=== PATIENT | female | born 1935 | race Caucasian/White ===

== ENCOUNTER 2020-02-23 11:26 | Outpatient (CLI) | payer MEDICARE, BC, SELFPAY ==
--- NOTE | ~2020-02-23 | XR_ITS ---
EXAMINATION: XR ribs LT 2V EXAM DATE: 02/23/2020 11:46 INDICATION: Rib pain on left side lower lateral rib. Symptoms one week. TECHNIQUE: Frontal projection of the upper left ribs, frontal projection of the lower left ribs, obli que projection of the left ribs for interpretation. Correlation is made to chest x-ray 09/21/2014. FINDINGS: There are no displaced acute left rib fractures identified. There is no soft tissue abnor mality seen. There are no osteoblastic or osteolytic lesions identified. Left lung is clear. IMPRESSION: Unremarkable left rib exam. Reviewed, dictated and finalized at location A. HT DISPATCHER IMPRESSION: Unremarkable left rib exam.
== END 2020-02-23 11:27 | disposition home or self-care (01) ==
PROVIDERS: PCP Family Medicine; Visit Provider Family Medicine
DX: R07.81 Pleurodynia (principal)
CPT/HCPCS: 71100

== ENCOUNTER 2020-04-23 09:21 | Outpatient (CLI) | payer MEDICARE, BC, SELFPAY ==
--- NOTE | 2020-04-23 09:24 | ECG_ITS ---
Measurements Intervals [place] Rate: 62 P: 61 WI: 157 QRS: 14 QRSD: 102 T: 48 QT: 403 QTc: 411 Interpretive Statements SINUS RHYTHM ATRIAL PREMATURE COMPLEX DELAYED PRECORDIAL R/S TRANSITION BASELINE ARTIFACT- I, III, AVR, AVL, AVF, V1-V6 BORDERLINE ECG Electronically Signed On 04-23-2020 12:03:50 PROGRESS CLERK by Scott Baumann D.O.
== END 2020-04-23 09:22 | disposition home or self-care (01) ==
LOC: ANHSURGERY 09:23
PROVIDERS: PCP Family Medicine; Visit Provider Plastic Surgery
DX: Z01.818 Encounter for other preprocedural examination (principal); I10 Essential (primary) hypertension
CPT/HCPCS: 93005

== ENCOUNTER 2020-04-26 00:49 | Outpatient (CLI) | payer MEDICARE, BC, SELFPAY ==
[2020-04-26 18:47] LABS: SARS-CoV-2 RNA PCR Negative
== END 2020-04-26 00:50 | disposition home or self-care (01) ==
LOC: ANHCOVIDDT 00:49
PROVIDERS: PCP Family Medicine; Visit Provider Plastic Surgery
DX: Z01.812 Encounter for preprocedural laboratory examination (principal); Z20.822 Contact with and (suspected) exposure to COVID-19
CPT/HCPCS: C9803; U0003; U0005

== ENCOUNTER 2020-04-30 02:20 | Day surgery (SDC) | payer MEDICARE, BC, SELFPAY ==
[2020-04-22 14:42] VITALS: BMI 23.4
[2020-04-30] VITALS (7 sets, daily range): BP systolic 155–174; BP diastolic 39–71; PULSE 65–80; RESP 14–16; TEMP 36.1; O2SAT 95–100
--- NOTE | 2020-04-30 07:27 | WPDHPUPDATE1 ---
History and Physical Update Update Date/Time: 04/30/20 07:27 History and Physical has been reviewed, including an updated exam of the patient. There are NO changes in the patient's condition. Risks, benefits, and alternatives have been discussed and questions answered. Patient agrees to proceed with procedure.
[2020-04-30] MEDS: LACTATED RINGERS 1,000 ML 30 ML IV CONT (09:25)
--- NOTE | 2020-04-30 09:53 | WPDANESEPPF ---
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 Section Possible Full Thickness Skin Graft Or Local Tissue Transfer, Excision Neoplasm Unspecified Behavior Left Upper Nasal Sidewall With Frozen Section With Possible Local Tissue Transfer - Caden Gagnon MD Date/Time: 04/30/20 09:53 Surgeon: Caden Gagnon MD Pre Op Diagnosis: Sq cell ca left nasal lobule, Patient Data Age: 84 Gender: F Height: 5 ft 5 in Weight: 62.8 kg Last Vital Signs Temp 96.9 F L 04/30/20 08:44 Pulse 65 04/30/20 08:44 Resp 14 04/30/20 08:44 BP 157/70 H 04/30/20 08:44 Pulse Ox 100 04/30/20 08:44 Allergies Allergy/AdvReac Type Severity Reaction Status Date / Time No Known Allergies Allergy Verified 04/30/20 09:02 Home Medications Medication Instructions Recorded Confirmed Type metoprolol succinate 25 mg PO BID 02/07/19 04/30/20 History zolpidem 5 mg PO HS 02/07/19 04/30/20 History tramadol 50 mg PO Q6H PRN #10 tablet MDD 6 02/15/19 04/30/20 Rx aspirin [Aspir-81] 81 mg PO DAILY 04/22/20 04/30/20 History carbidopa-levodopa 0.5 tablet PO TID 04/22/20 04/30/20 History cholecalciferol (vitamin D3) 50 mcg PO DAILY 04/30/20 04/30/20 History [Vitamin D3] magnesium PO DAILY 04/30/20 History vitamin B complex 1 cap PO DAILY 04/30/20 04/30/20 History Patient hx anesthesia problems: none Family hx anesthesia problems: none PMFSH Past Medical History Medical History (Updated 04/30/20 @ 09:53 by Adria Lainez MD) Arthritis History of cancer of left breast Hypercholesteremia Hypertension Parkinson disease Social History Social History Smoking status: Never smoker Alcohol intake: current Drinks per week: 1 Alcohol use details: SHOT GLASS OF RED WINE EVERY DAY Substance use: never Living arrangements: with family Additional living arrangements comments: TAKES CARE OF AT HOME Spiritual care concerns: No Anes - Eval Final PreProcedure Day of Procedure 04/30/20 09:53 Patient weight: normal Heart: regular rate and rhythm Lungs: clear to auscultation Airway: Mallampati scale class II Neurological: alert and oriented Last oral intake: >/= 8 hours ASA classification: III Emergent: no Anesthetic plan: proceed Anesthesia type and monitoring: general GIVS (may use LMA) and standard monitoring Informed Consent: The patient's anesthetic plan and its attendant risks and benefits were discussed with the patient/family/POA. Questions were solicited and answers provided to the satisfaction of the patient/family/POA.
[2020-04-30] MEDS: LIDO 1%/EPINEPHRINE 1:100,000 50 ML VIAL INFILTRATE (10:32)
[2020-04-30] MEDS: BACITRACIN OINTMENT 15 GM TUBE 1 APPLIC TOPICAL (10:33)
--- NOTE | 2020-04-30 10:46 | SUR.OPER ---
frozen sections x 2 sent with KELLEY Palumbo and received in pathology by Alisha
--- NOTE | 2020-04-30 12:06 | PM.OP ---
Procedure Note - Brief Procedure Note - Brief Date of procedure: 04/30/20 Pre-op diagnosis: Sq cell ca left nasal lobule, Post-op diagnosis: other (SCC left upper nasal lobule. Actinic Keratosis left upper nasal sidewall. Neoplasm of right upopr forehead.) Procedure performed: 1. 1 cm excision of squamous cell carcinoma of the left upper nasal lobule with frozen section and local tissue transfer 1 sq cm. 2. Two cm excision of neoplasm of the left upper nasal sidewall with frozen section and full-thickness skin graft 4 sq cm. 3. 1 cm excision of neoplasm of the right upper forehead with intermediate repair 1.4 cm Description of procedure: The patient had come for excision of 2 neoplasm from the left side of the upper nasal lobule and left upper nasal sidewall. She asked that a tender small mass on her right forehead be taken off the same time this was approximately 4 mm in diameter and I agreed. That tissue was not sent to frozen section. The sites were marked on her face as appropriate and she was taken to the operating room, placed supine on the operating table. Time-out was held and confirmed and she was given general IV sedation. The sites on the face at the right forehead the left nasal lobule and left nasal sidewall were carefully marked for excision. Each was infiltrated with 1% lidocaine with epinephrine. The lesion from the left upper nasal lobule was excised as a small pyramid [place] and the most superior aspect was marked with a suture for 12 o'clock. The specimen sent to pathology. The pathologist indicated there was a biopsy scar only. The lesion from the sidewall was taken into subcutaneous tissue, also marked with a suture for 12:00 o'clock and sent to pathology. The pathologist indicates actinic keratosis only, extending to the margins. The lesion from the forehead was taken off as a small transversely oriented ellipse and sent for permanent section. That wound was closed with intradermal 4-0 Vicryl and interrupted 5 0 nylon. The lesion on the side of the lobule was closed with a small local tissue transfer. This was elevated from the cephalad aspect and rotated and inset with 4-0 Vicryl and 5 0 nylon. The defect from the sidewall was closed with a full-thickness skin graft taken from the left upper neck. This was defatted and inset with 5 0 nylon: quilting stitches were placed a very sites across the width of the graft. The patient was discharged from the operating room in stable condition. She will be discharged with a prescription for cephalexin the Tramadol . Anesthesia: MAC Surgeon: Caden Gagnon MD Estimated blood loss (mL): 4 Drains: No Packing: No Complications: No immediate complications Condition: stable Disposition: same day
[2020-04-30] MEDS: traMADol HCL (*CRX) 50 MG TABLET PO (14:14)
== END 2020-04-30 14:30 | disposition home or self-care (01) ==
PROVIDERS: Family Provider Hospitalist; PCP Family Medicine; Visit Provider Plastic Surgery
PROC: (CPT 11642; principal; 2020-04-30 10:30)
DX: C44.321 Squamous cell carcinoma of skin of nose (principal); C44.329 Squamous cell carcinoma of skin of other parts of face; L57.0 Actinic keratosis; G20 Parkinson's disease; I10 Essential (primary) hypertension; E78.00 Pure hypercholesterolemia, unspecified; Z85.3 Personal history of malignant neoplasm of breast; Z79.82 Long term (current) use of aspirin
CPT/HCPCS: 11642; 15260; 11641; 12051; 14060; 88304; 88305; 88331; 88332; A9270; J2704; J3010; J7120

== ENCOUNTER 2020-06-23 10:43 | Observation (INO) | payer MEDICARE, BC, SELFPAY ==
[2020-06-23] VITALS (11 sets, daily range): BP systolic 129–174; BP diastolic 53–75; PULSE 70–80; RESP 13–20; TEMP 36.4–36.8; O2SAT 98–100; BMI 21.9
--- NOTE | ~2020-06-23 | XR_ITS ---
EXAMINATION: XR chest 2V EXAM DATE: 06/23/2020 11:40 INDICATION: Chest pain for 3 days. TECHNIQUE: Frontal and lateral projections of the chest obtained and reviewed. Comparison is made to prior examination from 09/21/2014. FINDINGS: The lungs are clear. There are no pleural effusions. The cardiomediastinal silhouette is within normal limits. There is no pneumothorax suspected. The bones and soft tissues are unremarkab le. IMPRESSION: No acute cardiopulmonary findings. Reviewed, dictated and finalized at location A.
--- NOTE | 2020-06-23 10:55 | ECG_ITS ---
Measurements Intervals [place] Rate: 73 P: VA: 0 QRS: -5 QRSD: 96 T: 21 QT: 412 QTc: 457 Interpretive Statements SINUS RHYTHM ATRIAL AND VENTRICULAR PREMATURE COMPLEXES BORDERLINE ST ABNORMALITY- INF/LAT LEADS BASELINE ARTIFACT- I, II, III, AVR, AVL,A VF, V1-V6 BORDERLINE ECG Electronically Signed On 06-23-2020 11:33:09 CDT by Scott Baumann D.O.
--- NOTE | 2020-06-23 10:58 | ED.CHESTPAIN ---
HPI - Chest Pain General Chief Complaint: Chest Pain Stated Complaint: CP Source: RN notes reviewed History of Present Illness HPI narrative: Patient presents emergency department from home for chest pain. Patient states that symptoms began last night. The pain was initially located in the left chest and ultimately rating around to the right shoulder into the back she states that the pain is resolved at this time states that the pain has been lasting all night she notes no associated fevers or chills shortness of breath abdominal pain nausea vomiting or any other symptoms. States she took no medication for the symptoms. She denies any previous cardiac history Related Data Home Medications Medication Instructions Recorded Confirmed metoprolol succinate 25 mg PO BID 02/07/19 04/30/20 zolpidem 5 mg PO HS 02/07/19 04/30/20 aspirin [Aspir-81] 81 mg PO DAILY 04/22/20 04/30/20 carbidopa-levodopa 0.5 tablet PO TID 04/22/20 04/30/20 cholecalciferol (vitamin D3) 50 mcg PO DAILY 04/30/20 04/30/20 [Vitamin D3] magnesium PO DAILY 04/30/20 vitamin B complex 1 cap PO DAILY 04/30/20 04/30/20 losartan 25 mg PO DAILY 06/23/20 Allergies Allergy/AdvReac Type Severity Reaction Status Date / Time No Known Allergies Allergy Verified 06/23/20 10:58 Review of Systems Review of Systems: Narrative: Gen.: Denies fevers or chills ENT: Denies congestion Respiratory: Denies shortness of breath or cough CV: See HPI GI: Denies abdominal pain nausea, emesis or diarrhea Musculoskeletal: Denies back pain or muscle pain Neuro: Denies numbness, tingling, weakness or focal weakness Skin: Denies rash Except as documented, all other systems reviewed and negative [facility] Past Medical History Medical History Arthritis History of cancer of left breast Hypercholesteremia Hypertension Parkinson disease Social History Social History Smoking status: Never smoker Alcohol intake: current Drinks per week: 1 Substance use: never Additional living arrangements comments: TAKES CARE OF AT HOME Gender identity (if verbalized by the patient): Female Spiritual care concerns: No Exam Narrative: Exam Narrative: APPEARANCE: No acute distress, nontoxic, resting in bed EYES: EOMI HEENT: Normocephalic, atraumatic, OMM RESPIRATORY: No respiratory distress Clear to auscultation bilaterally with no rhonchi wheezing or rales. CARDIOVASCULAR: Regular rate and rhythm without murmurs rubs or gallops. Chest: Turn palpation of the left anterior chest wall in the region of ribs 6 through 8 with point tenderness present ABDOMINAL: Soft, nontender, nondistended, no rebound or guarding MUSCULOSKELETAl: Moves all extremities. No clubbing, cyanosis or edema. NEURO: Awake and alert. Following commands, speech normal, no focal deficits SKIN:: Warm, dry. No rashes lesions or abrasions PSYCHIATRIC: Normal affect/mood, Course Course Emergency Course: Discussed with ALICIA Peace for Dr. Mancia presentation work-up agrees with admission at this time request consult to cardiology Discussed with patient and family results of workup and diagnosis. Discussed need for admission. Patient and family understand and agree to current treatment plan Vital Signs Vital signs: Vital Signs Temperature 98.3 F 06/23/20 10:44 Pulse Rate 73 06/23/20 10:44 Respiratory Rate 19 06/23/20 10:44 Blood Pressure 169/53 H 06/23/20 10:44 Pulse Oximetry 100 06/23/20 10:44 Temperature 98.3 F 06/23/20 10:44 Pulse Rate 72 06/23/20 13:37 Respiratory Rate 17 06/23/20 13:37 Blood Pressure 152/53 H 06/23/20 13:37 Pulse Oximetry 98 06/23/20 13:37 MDM - Chest Pain Lab Data Result diagrams: 06/23/20 10:57 06/23/20 11:20 Labs: Lab Results 06/23/20 06/23/20 06/23/20 Range/Units 10:57 10:58 11:20 WBC 7.1 (4
[2020-06-23 11:03] LABS: Basophils Percent Auto 0.6 % (0.2-1.2); Eosinophils Absolute Auto 0.1 K/mm3 (0-0.3); Eosinophils Percent Auto 0.7 % (0-4.4); Hematocrit 42.6 % (37.0-47.0); Hemoglobin 14.3 g/dL (12.0-15.0); Immature Granulocyte Absolute 0.02 K/mm3 (0.00-0.031); Immature Granulocyte Percent A 0.3 % (0-0.5); Lymphocytes Absolute Auto 1.06 K/mm3 (0.9-3.2); Lymphocytes Percent Auto 14.9 % (18.3-44.2); Mean Corpuscular HGB Conc 33.6 g/dl (32-36); Mean Corpuscular Hemoglobin 32.7 pg (26-34); Mean Corpuscular Volume 97.5 fl (80-100); Mean Platelet Volume 8.9 fl (7.4-10.4); Monocytes Absolute Auto 0.6 K/mm3 (0.1-0.6); Monocytes Percent Auto 7.7 % (2.6-8.5); Neutrophils Absolute Auto 5.4 K/mm3 (1.3-6.7); Neutrophils Percent Auto 75.8 % (45.5-73.1); Platelet Count Result 213 k/mm3 (150-375); Red Blood Count 4.37 M/mm3 (4.2-5.4); Red Cell Distribution Width 12.1 % (11.5-14.5); White Blood Count 7.1 K/mm3 (4.5-10.0)
[2020-06-23 11:13] LABS: INR 0.9; Prothrombin Time 12.4 Seconds (11.1-14.7)
[2020-06-23 11:14] LABS: Partial Thromboplastin Time 29.5 SECONDS (22.3-36.8)
--- NOTE | 2020-06-23 11:38 | PC.NURSE ---
Pt to XR via maribelcher at this time.
[2020-06-23 11:39] LABS: Anion Gap 4 mmol/L (8-16); Blood Urea Nitrogen 17 mg/dL (7-17); Calcium 9.1 mg/dL (8.4-10.2); Carbon Dioxide 31 mmol/L (22-30); Chloride 102 mmol/L (98-107); Estimated CRCL calculation 42 ml/min; Estimated Glomerular Filt Rate > 60; Glucose 109 mg/dL (65-105); Sodium 137 mmol/L (137-145)
[2020-06-23 11:51] LABS: Troponin I < 0.012 ng/mL (0.000-0.034)
[2020-06-23 12:14] LABS: Alanine Aminotransferase 8 U/L (4-35); Albumin Level 4.2 g/dL (3.5-5.1); Alkaline Phosphatase 72 U/L (38-126); Aspartate Amino Transferase 26 U/L (14-36); Bilirubin,Total 0.6 mg/dL (0.2-1.3); Lipase 82 U/L (23-300)
--- NOTE | 2020-06-23 12:27 | ECG_ITS ---
Measurements Intervals [place] Rate: 74 P: 53 LA: 159 QRS: 1 QRSD: 92 T: 42 QT: 415 QTc: 462 Interpretive Statements SINUS RHYTHM VENTRICULAR TRIGEMINY BASELINE ARTIFACT- I, III, AVL, AVF, V2-V6 ABNORMAL ECG Electronically Signed On 06-23-2020 12:46:01 CDT by Scott Baumann D.O.
--- NOTE | 2020-06-23 12:27 | PC.NURSE ---
Pt reports RT shoulder pain. EDP made aware. Gave VORB for EKG.
--- NOTE | 2020-06-23 13:42 | PC.NURSE ---
Attepmted to give report to IMU. Was infromed by Deon that recieving nurse was at lunch and that she would call back.
--- NOTE | 2020-06-23 14:47 | ADMGEN ---
This patient, Marietta Sanderson, was admitted to IMU Room 211-01 @ 1440.. Patient oriented to hospital policies and general routines including ID bracelet, bed and alarms, visiting hours, pain management, procedures, bathroom and other care routines, personal items, smoking policy, room service/diet, and visiting hours. Information on how to activate the Rapid Response Team has been discussed. Patient \ encouraged to report perceived risks to care and to ask questions if they do not understand what they are told or what they should do.
[2020-06-23 15:03] LABS: Troponin I < 0.012 ng/mL (0.000-0.034)
--- NOTE | 2020-06-23 16:34 | PM.CNCAR ---
Assessment and Plan Assessment and plan (1) Chest pain: Code(s): R07.9 - Chest pain, unspecified Status: Acute Assessment and Plan: Atypical chest pain most likely noncardiac with constant left fullness aching for the past few days occurring randomly over 3 years radiating to the right shoulder and around the back lasting several hours prior to presentation resolved prior to arrival negative serial enzymes thus far without acute ischemic changes on EKG. Patient reports a history of normal coronary angiography approximately 15 years ago in [place]. Patient wishes to be discharged home. Was scheduled for follow-up with me as an outpatient and Lexiscan nuclear stress test for further assessment within the next week. Patient and daughter verbalized understanding and agreed with plan of care. Discussed the pros and cons of inpatient versus outpatient evaluation however there is no evidence of acute myocardial infarction with atypical symptoms on the left chest current length corresponding with the site of prior mastectomy and breast cancer. Any aspirin 81 mg daily, continue metoprolol. After lengthy discussion with regards to risks if significant underlying CAD is present, potential for recurrence of symptoms patient is stable to be discharged home also in accordance with her wishes. Office will contact her tomorrow with regards to follow-up appointment and stress test appointment. Patient and daughter verbalized understanding and agreed with plan of care. If she should develop severe unrelenting chest pain she has been advised to return to emergency department. Lexiscan stress test as outpt. Discussed integrating her atypical sxs with stress test results and her wishes. Disposition per hospitalist service. (2) Hypertension: Code(s): I10 - Essential (primary) hypertension Status: Inactive Assessment and Plan: BP elevated at presentation. Increase losartan to 50 mg daily at bedtime as tolerated. (3) Hypercholesteremia: Code(s): E78.00 - Pure hypercholesterolemia, unspecified Status: Inactive Assessment and Plan: Check lipid panel. History of Present Illness History of Present Illness Consult date/time: Date of service:06/23/20 16:34 Cardiology consultation at the request of [facility] for our opinion regarding chest pain. Requesting physician: Nata Ardon NP Consult reason: chest pain Reason For Visit: Chest pain Narrative: Patient is a very pleasant 84-year-old female with a past medical history significant for breast cancer status post left mastectomy, reported negative cardiac catheterization 15 years ago in [place], hypertension, dyslipidemia, Parkinson's who was in her usual state of health while at rest she noted chest pain which began a left then radiated to the right shoulder around the right back to the midline. Symptoms persisted for several hours and due to this she presents the emergency department. Prior to admission her symptoms resolved spontaneously. She has never experienced symptoms similar to this. She notes she is having a fullness her achy pain in the left chest which has been constant for 3 days with no exacerbation with meals, position or activity. Patient states he is otherwise generally active bleed is under a great deal of stress caring for her at home. Cardiac enzymes are negative thus far 12 EKGs unremarkable without acute ischemic changes. Patient very promptly stated she wanted to be discharged home as she was feeling fine. She denies any chest pain or exertional dyspnea. Chest pain always random occurring at rest no association with position, deep breathing or coughing. Patient has had left-sided chest discomfort intermittently as above for 3 years. Daughter is at bedside who also corroborates this history. With regards to her cardiac catheterization 15 years ago she underwent a stress test with a felt the
[2020-06-23 17:32] LABS: Troponin I < 0.012 ng/mL (0.000-0.034)
[2020-06-23] MEDS: CARBIDOPA/LEVODOPA 12.5/50 MG TABLET 1 TABLET PO (17:32)
--- NOTE | 2020-06-23 18:02 | PM.SD2 ---
Same Day Admit/Disch: HPI History of Present Illness Chief complaint: Chest pain Narrative: Marietta Sanderson is a 84 year old female who has no history of any coronary artery disease. The patient came in through the emergency room with complaints of chest pain. She said that the symptoms started last night but she has had this pain before. This pain has been on and off for several years. She has tenderness in the left upper chest. She notes that she has not had any straining is exercise recently or had to lift her that she takes care of at home. The patient stated she was just sitting at home with the started and it felt like a pressure she did not sleep very well last night because of the pressure. No nausea vomiting or diarrhea. No fever chills. The patient took no medication for the symptoms. She did not sleep all night because of the discomfort. Cardiology has been consulted and had a lengthy discussion with her. The patient is insistent on going home. All 3 troponins are now negative. Chest x-ray is negative. She no longer has any chest discomfort. She has had a stress test many years ago which she states was negative. She has a history of hyperlipidemia and hypertension. Elevated at 169/65 earlier today than it did come down a 129/75. Blood glucose was 109. The rest of her labs are remarkable. The patient is being discharged to home shortly after she was admitted. Her 3rd troponin was found to be negative and cardiology noted that she could follow-up with them for Lexiscan outpatient. EKG was also found to be unremarkable. Patient has had chest discomfort intermittently on and off for the last 3 years. Patient is to resume aspirin as she takes at home. Patient was admitted for observation but was just a same day admit/discharge. Date of service was 06/23/2020. [facility] Past Medical History Medical History (Updated 06/23/20 @ 18:10 by Nata Kahn NP) Arthritis History of cancer of left breast Hypercholesteremia Hypertension Parkinson disease Surgical History Surgical History (Updated 06/23/20 @ 18:10 by Nata Kahn NP) Cataract extraction status H/O left mastectomy H/O: hysterectomy Family History Family History (Updated 06/23/20 @ 18:14 by Nata Kahn NP) Mother Cancer Father Cancer Social History Social History (Updated 06/23/20 @ 18:15 by Nata Kahn NP) Social History: The patient has power assistant city attorney which is her daughter Alvina. She is a full code. 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 She was a lifelong nonsmoker. No alcohol, marijuana, or illicit drugs. Smoking status: Never smoker Alcohol intake: never Drinks per week: 1 Substance use: never Additional living arrangements comments: TAKES CARE OF AT HOME Gender identity (if verbalized by the patient): Female Spiritual care concerns: No Same Day Admit/Disch: Med Pre-admit Medications Home Medications Medication Instructions Recorded Confirmed Type metoprolol succinate 25 mg PO Q12H 02/07/19 06/23/20 History zolpidem 5 mg PO HS 02/07/19 06/23/20 History aspirin [Aspir-81] 81 mg PO DAILY 04/22/20 06/23/20 History carbidopa-levodopa 0.5 tablet PO TID 04/22/20 06/23/20 History cholecalciferol (vitamin D3) 50 mcg PO DAILY 04/30/20 06/23/20 History [Vitamin D3] magnesium 250 mg PO DAILY 04/30/20 06/23/20 History vitamin B complex 1 cap PO DAILY 04/30/20 06/23/20 History losartan 25 mg PO DAILY 06/23/20 06/23/20 History tramadol 25 mg PO Q6H PRN MDD 6 06/23/20 06/23/20 History Exam Const: General: cooperative, healthy appearing, comfortable, no acute distress, well developed, alert, awake and Physically active Nutritional Appearance: average body habitus and well nourished Orientation/consciousness: oriented to person, oriented to place, oriented to time and patient oriented x3 Limitations: no limitations HENMT: Head: normal to inspection, No palpable skull fr
--- NOTE | 2020-06-23 18:52 | PC.NURSE ---
184- pt discharged home-via w/c to vehiccle driven by daughter; instructions discussed with pt and daughter- both verbalized understanding-
== END 2020-06-23 18:47 | disposition home or self-care (01) ==
LOC: ANHED 12:43 → ANHIMU 13:25
PROVIDERS: Admitting Provider Family Medicine; Emergency Provider Emergency Medicine; PCP Family Medicine; Visit Provider Family Medicine
DX: R07.89 Other chest pain (principal); I10 Essential (primary) hypertension; E78.00 Pure hypercholesterolemia, unspecified; Z85.3 Personal history of malignant neoplasm of breast; G20 Parkinson's disease
CPT/HCPCS: 36415; 71046; 80048; 80076; 83690; 84484; 85025; 85610; 85730; 93005; 96365; 99285; A9270; G0378; J0131

== ENCOUNTER 2020-10-23 01:08 | Day surgery (SDC) | payer MEDICARE, BC, SELFPAY ==
[2020-10-20 10:38] VITALS: BMI 24.1
[2020-10-23] VITALS (8 sets, daily range): BP systolic 134–192; BP diastolic 60–75; PULSE 61–81; RESP 12–16; TEMP 36.3; O2SAT 99–100
[2020-10-23] MEDS: LACTATED RINGERS 1,000 ML 30 ML IV CONT (07:15)
--- NOTE | 2020-10-23 07:17 | WPDHPUPDATE1 ---
History and Physical Update Update Date/Time: 10/23/20 07:17 History and Physical has been reviewed, including an updated exam of the patient. There are NO changes in the patient's condition. Risks, benefits, and alternatives have been discussed and questions answered. Patient agrees to proceed with procedure.
--- NOTE | 2020-10-23 07:48 | WPDANESEPPF ---
Anes - Initial Pre Proc Eval Procedure: Operation Date: 10/23/20 08:30 Proposed Procedures p Excision Squamous Cell Carcinoma Right Nasal Ala, with Frozen Section, Full Thickness Skin Graft, or Local Tissue Transfer - Caden Gagnon MD Date/Time: 10/23/20 07:48 Surgeon: Caden Gagnon MD Pre Op Diagnosis: right squamous cell carcinoma rt nasal ala Patient Data Age: 84 Gender: F Height: 1.65 m Weight: 64.6 kg Last Vital Signs Temp 36.3 C L 10/23/20 07:25 Pulse 61 10/23/20 07:25 BP 186/60 H 10/23/20 07:25 Pulse Ox 99 10/23/20 07:25 Allergies Allergy/AdvReac Type Severity Reaction Status Date / Time No Known Allergies Allergy Verified 10/23/20 06:51 Home Medications Medication Instructions Recorded Confirmed Type metoprolol succinate 25 mg PO Q12H 02/07/19 10/23/20 History zolpidem 5 mg PO HS 02/07/19 10/23/20 History aspirin 81 mg PO DAILY 04/22/20 10/23/20 History carbidopa-levodopa 0.5 tablet PO TID 04/22/20 10/23/20 History cholecalciferol (vitamin D3) 50 mcg PO DAILY 04/30/20 10/23/20 History [Vitamin D3] magnesium 250 mg PO DAILY 04/30/20 10/23/20 History vitamin B complex 1 cap PO DAILY 04/30/20 10/23/20 History losartan 25 mg PO DAILY 06/23/20 10/23/20 History tramadol 25 mg PO Q6H PRN MDD 6 06/23/20 10/23/20 History Patient hx anesthesia problems: none Family hx anesthesia problems: none PMFSH Past Medical History Medical History Arthritis History of cancer of left breast Hypercholesteremia Hypertension Parkinson disease Surgical History Surgical History Cataract extraction status H/O left mastectomy H/O: hysterectomy Family History Family History Mother Cancer Father Cancer Social History Social History Social History: The patient has power deputy county attorney which is her daughter Alvina. She is a full code. 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 No alcohol, marijuana, or illicit drugs. Smoking status: Never smoker Alcohol intake: never Drinks per week: 1 Alcohol use details: SHOT GLASS OF RED WINE EVERY DAY Substance use: never Living arrangements: with family Additional living arrangements comments: TAKES CARE OF AT HOME Gender identity (if verbalized by the patient): Female Spiritual care concerns: No Anes - Eval Final PreProcedure Day of Procedure 10/23/20 07:48 Patient weight: normal Lungs: clear to auscultation Airway: Mallampati scale class II Neurological: alert and oriented Last oral intake: >/= 8 hours ASA classification: III Emergent: no Anesthetic plan: proceed Anesthesia type and monitoring: general GIVS and standard monitoring Informed Consent: The patient's anesthetic plan and its attendant risks and benefits were discussed with the patient/family/POA. Questions were solicited and answers provided to the satisfaction of the patient/family/POA.
[2020-10-23] MEDS: ceFAZolin 2 GM/D5W 50 ML 2 GM/50 ML BAG IVPB (08:23)
--- NOTE | 2020-10-23 09:02 | SUR.OPER ---
Frozen Section Specimen sent with FILIPE Peace and given to Macy in Lab @ [id number].
[2020-10-23] MEDS: BACITRACIN OINTMENT 15 GM TUBE 1 APPLIC TOPICAL (09:53)
[2020-10-23] MEDS: LIDO 1%/EPINEPHRINE 1:100,000 20 ML VIAL 5 ML INFILTRATE (09:54)
--- NOTE | 2020-10-23 11:10 | SUR.PHASEII ---
Informed Dr. Quintana of patient's elevated blood pressure 192/75 HR 75. New orders received for labetolol 10mg IV x1
[2020-10-23] MEDS: LABETALOL HCL INJ 100 MG/20 ML VIAL 10 MG IV PUSH (11:20)
--- NOTE | 2020-10-23 12:19 | W.PM.PROC2 ---
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 This was compared to the drawing which is part of her history and physical for the day. She was taken to the operating room placed supine on the operating table. A time-out was held and confirmed. She was given IV sedation and entire face and neck were prepped and draped in usual fashion. The site on her right nasal lobule and ala was carefully marked for the biopsy site and crusted actinic lesions in the immediate area. This area was then infiltrated with 1% lidocaine with epinephrine. A thick skin ellipse was taken into the dermis. This was marked at the point lying at the nasal ala groove laterally for 12 o'clock. The specimen was sent to pathology. The pathologist reviewed healed the above findings indicating no squamous cell carcinoma present but thick actinic keratoses and margins free. A full-thickness graft was taken from the right upper neck the site was marked and infiltrated with 1% lidocaine with epinephrine. Appropriate being shaped piece of skin was taken as a full-thickness graft with no subcutaneous tissue. The specimen was thin and easily fit into the defect and was repaired there with interrupted 6 0 nylon. Quilting stitches were placed in the middle portion of the graft as well. The donor site was closed with interrupted 4-0 Vicryl and glue. The graft was dressed with bacitracin ointment. The patient was discharged from operating room stable condition. She had received 2 g of Ancef preop. She will be discharged home with a prescription for cephalexin 500 mg b.i.d. for 5 days and Tramadol 8.
== END 2020-10-23 12:07 | disposition home or self-care (01) ==
PROVIDERS: PCP Family Medicine; Visit Provider Plastic Surgery
PROC: (CPT 11642; principal; 2020-10-23 08:30)
DX: C44.321 Squamous cell carcinoma of skin of nose (principal); L57.0 Actinic keratosis; I10 Essential (primary) hypertension; E78.00 Pure hypercholesterolemia, unspecified; G20 Parkinson's disease; Z85.3 Personal history of malignant neoplasm of breast; Z79.82 Long term (current) use of aspirin
CPT/HCPCS: 11642; 15260; 88305; 88331; 88332; A9270; J0690; J2704; J7120

== ENCOUNTER 2021-11-22 04:55 | Emergency (ER) | payer MEDICARE, BC, SELFPAY ==
--- NOTE | ~2021-11-22 | XR_ITS ---
EXAMINATION: XR chest 1V portable INDICATION: Chest pain TECHNIQUE: Portable AP chest at 0506 hours COMPARISON: 06/23/2020 FINDINGS: There is mild scarring of the lung apices. The lungs are free of acute opacities. No pleura l effusion or pneumothorax. The cardiomediastinal silhouette is normal. IMPRESSION: 1. No acute cardiopulmonary abnormality. Reviewed, dictated and finalized at location A.
[2021-11-22 04:52] VITALS: BP 183/81; PULSE 86; RESP 20; TEMP 36.6; O2SAT 100
--- NOTE | 2021-11-22 05:01 | ECG_ITS ---
Measurements Intervals Dexter Rate: 72 P: 59 KS: 157 QRS: -6 QRSD: 94 T: 28 QT: 402 QTc: 440 Interpretive Statements SINUS RHYTHM WITH OCCASIONAL VENTRICULAR PREMATURE COMPLEXES BORDERLINE ECG COMPARED TO ECG 06/23/2020 12:33:54 NO SIGNIFICANT CHANGES Electronically Signed On 11-22-2021 14:39:37 CDT by Jeff Matthew M.D.
--- NOTE | 2021-11-22 05:02 | ED.GENADULT ---
HPI - General Adult General Chief complaint: Recheck/Abnormal Lab/Rx Stated complaint: HTN Time Seen by Provider: 11/22/21 05:01 History of Present Illness HPI narrative: 86-year-old female presents emergency room by ambulance. She comes in secondary to elevation of her blood pressure. She states her blood pressures been running running high since yesterday. She states she does not normally check her blood pressure but she just did not feel right and has some nonspecific discomfort in her chest and checked her blood pressure. It was running high as a systolic blood pressure of 200. She does have underlying history of hypertension been taking her medication as prescribed. She denies any cough congestion chills or fever. No shortness of breath. Denies any headache or dizziness. No numbness or tingling to her arms or legs. She has had a cardiac catheterization performed in the [facility] and [place] in the past which showed no evidence of any coronary artery disease. Related Data Home Medications Medication Instructions Recorded Confirmed metoprolol succinate 25 mg 25 mg PO Q12H 02/07/19 10/23/20 tablet,extended release 24 hr zolpidem 5 mg tablet 5 mg PO HS 02/07/19 10/23/20 aspirin 81 mg tablet,delayed 81 mg PO DAILY 04/22/20 10/23/20 release carbidopa 25 mg-levodopa 100 mg 0.5 tablet PO TID 04/22/20 10/23/20 tablet cholecalciferol (vitamin D3) 50 50 mcg PO DAILY 04/30/20 10/23/20 mcg (2,000 unit) capsule (Vitamin D3) magnesium 250 mg PO DAILY 04/30/20 10/23/20 vitamin B complex 1 cap PO DAILY 04/30/20 10/23/20 losartan 25 mg tablet 25 mg PO DAILY 06/23/20 10/23/20 tramadol 50 mg tablet 25 mg PO Q6H PRN pain 06/23/20 10/23/20 Allergies Allergy/AdvReac Type Severity Reaction Status Date / Time No Known Allergies Allergy Verified 10/23/20 06:51 Review of Systems Review of Systems: CONSTITUTIONAL: Denies fever, chills, or sweats. EYES: Denies visual changes, redness, or discharge. ENT: Denies rhinorrhea, congestion, sore throat, or otalgia. CARDIOVASCULAR: Some nonspecific pain to the left lateral chest wall area. No palpitations. RESPIRATORY: Denies cough or dyspnea. GASTROINTESTINAL: Denies abdominal pain, nausea, vomiting, or diarrhea. GENITOURINARY: Denies dysuria or hematuria. SKIN: Denies rash or itching. MUSCULOSKELETAL: Denies back pain, joint pain, or myalgia. NEUROLOGIC: Denies headache, numbness, or weakness. PSYCHIATRIC: Denies anxiety or depression. PMFSH Past Medical History Medical History Arthritis History of cancer of left breast Hypercholesteremia Hypertension Parkinson disease Surgical History Surgical History Cataract extraction status H/O left mastectomy H/O: hysterectomy Family History Family History Mother Cancer Father Cancer Social History Social History Social History: The patient has power insurance attorney which is her daughter Alvina. She is a full code. 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 She was a lifelong nonsmoker. No alcohol, marijuana, or illicit drugs. Smoking status: Never smoker Alcohol intake: never Drinks per week: 1 Alcohol use details: SHOT GLASS OF RED WINE EVERY DAY Substance use: never Additional living arrangements comments: TAKES CARE OF AT HOME Gender identity (if verbalized by the patient): Female Spiritual care concerns: No Exam Narrative: APPEARANCE: Well appearing, no pain or distress, well-nourished. Head Normocephalic and atraumatic. EYES: PERRLA/EOMI, conjunctivae clear. NOSE: Normal with no drainage EARS:TMS clear with Senior, with good light reflex. THROAT: Pharynx clear, no exudate. NECK: Supple. No adenopathy, no masses. RESPIRATORY: Airway patent, respirations nonlabored. Clear
[2021-11-22 05:27] LABS: Basophils Percent Auto 0.5 % (0.2-1.2); Eosinophils Absolute Auto 0.1 K/mm3 (0-0.3); Eosinophils Percent Auto 0.8 % (0-4.4); Hematocrit 40.5 % (37.0-47.0); Hemoglobin 13.3 g/dL (12.0-15.0); Immature Granulocyte Absolute 0.02 K/mm3 (0.00-0.031); Immature Granulocyte Percent A 0.3 % (0-0.5); Lymphocytes Absolute Auto 1.13 K/mm3 (0.9-3.2); Lymphocytes Percent Auto 17.4 % (18.3-44.2); Mean Corpuscular HGB Conc 32.8 g/dl (32-36); Mean Corpuscular Hemoglobin 32.4 pg (26-34); Mean Corpuscular Volume 98.5 fl (80-100); Mean Platelet Volume 8.8 fl (7.4-10.4); Monocytes Absolute Auto 0.4 K/mm3 (0.1-0.6); Monocytes Percent Auto 5.9 % (2.6-8.5); Neutrophils Absolute Auto 4.9 K/mm3 (1.3-6.7); Neutrophils Percent Auto 75.1 % (45.5-73.1); Platelet Count Result 199 k/mm3 (150-375); Red Blood Count 4.11 M/mm3 (4.2-5.4); White Blood Count 6.5 K/mm3 (4.5-10.0)
[2021-11-22] MEDS: LABETALOL HCL INJ 100 MG/20 ML VIAL 10 MG IV PUSH (05:32)
[2021-11-22 05:37] LABS: Alanine Aminotransferase 19 U/L (6-35); Albumin Level 4.5 g/dL (3.5-5.1); Alkaline Phosphatase 88 U/L (38-126); Anion Gap 8 mmol/L (8-16); Aspartate Amino Transferase 24 U/L (14-36); Bilirubin,Total 0.5 mg/dL (0.2-1.3); Blood Urea Nitrogen 17 mg/dL (7-17); Carbon Dioxide 28 mmol/L (22-30); Chloride 102 mmol/L (98-107); Estimated CRCL calculation 37 ml/min; Estimated Glomerular Filt Rate 60; Glucose 126 mg/dL (65-110); Sodium 138 mmol/L (137-145)
[2021-11-22 05:49] LABS: Troponin I < 0.012 ng/mL (0.000-0.034)
[2021-11-22 06:29] VITALS: BP 160/59; PULSE 72; RESP 16; O2SAT 98
== END 2021-11-22 06:30 | disposition home or self-care (01) ==
PROVIDERS: Emergency Provider Emergency Medicine; PCP Family Medicine
DX: I10 Essential (primary) hypertension (principal); E78.00 Pure hypercholesterolemia, unspecified; G20 Parkinson's disease; Z85.3 Personal history of malignant neoplasm of breast; M19.90 Unspecified osteoarthritis, unspecified site; Z98.49 Cataract extraction status, unspecified eye; Z90.12 Acquired absence of left breast and nipple; Z79.82 Long term (current) use of aspirin; I49.3 Ventricular premature depolarization
CPT/HCPCS: 36415; 71045; 80053; 84484; 85025; 93005; 96374; 99284

== ENCOUNTER 2022-01-01 07:21 | Outpatient (CLI) | payer MEDICARE, BC, SELFPAY ==
--- NOTE | ~2022-01-01 | MR_ITS ---
EXAMINATION: MR lumbar spine wo con DATE: 01/01/2022 08:27 INDICATION: Chronic low back pain. Right-sided sciatica. TECHNIQUE: Magnetic resonance imaging (MRI) of the lumbar spine was performed without intravenous con trast. Sequences included sagittal T2-weighted FSE, sagittal T2-weighted FS FSE, sagittal T1-weighted FSE, and axial T2-weighted FSE. COMPARISON: Lumbar spine MRI 06/08/2006 FINDINGS: There is 8 degrees dextrocurvature of lumbar spine. Vertebral body heights are normal. Ther e is severely decreased disc height at L4-L5 and L5-S1 with endplate remodeling. The distal spinal co rd signal intensity is normal. The conus medullaris is at L1-L2. The following disc levels are specif ically discussed: L1-L2: The disc does not extend beyond the endplate margin. There is mild bilateral facet joint osteo arthritis. There is no neural foraminal stenosis. There is no central canal stenosis. L2-L3: The disc is bulging. There is severe bilateral facet joint osteoarthritis. There is mild bilat eral neural foraminal stenosis. There is no central canal stenosis. L3-L4: The disc is bulging and has an annular fissure. There is severe bilateral facet joint osteoart hritis. There is mild bilateral neural foraminal stenosis. There is mild central canal stenosis. L4-L5: The disc is bulging and has an annular fissure. There is severe bilateral facet joint osteoart hritis. There is mild bilateral neural foraminal stenosis. There is mild central canal stenosis. L5-S1: The disc is bulging and has an annular fissure. There is severe bilateral facet joint osteoart hritis. There is moderate and mild left neural foraminal stenosis. There is mild central canal stenos is. IMPRESSION: 1. Severe lumbar spondylosis, worsened from 06/08/2006. Reviewed, dictated and finalized at location A.
== END 2022-01-01 07:22 | disposition home or self-care (01) ==
PROVIDERS: PCP Family Medicine
DX: M54.41 Lumbago with sciatica, right side (principal); G89.29 Other chronic pain; M47.816 Spondylosis without myelopathy or radiculopathy, lumbar region
CPT/HCPCS: 72148